=== PATIENT | male | born 1960 | race Caucasian/White ===

== ENCOUNTER 2023-05-30 15:41 | Emergency (ER) | payer MEDICARE, MEDICAID, SELFPAY ==
[2023-05-30 15:48] VITALS: BP 136/84; PULSE 80; RESP 16; TEMP 36.6; O2SAT 96; BMI 24.4
--- OUTSIDE RECORDS SUMMARY | 2023-05-30 16:08 | XMS_ITS | Continuity of Care Document ---
Author Name Unknown Organization [facility] Address [address] [place] [address]- Care Team Providers Care Career Placement Specialist Name Role Phone Not on Staff, PCP Primary Care Physician Unavail able Encounter [facility] [place] Date(s): 12/23/19 - 03/04/[address] [address]- [facility] Attending Physician: Terese Young MD, I Admitting Physician: Terese Young MD, I Referring Physician: Terese Young MD, I Allergies, Adverse Reactions, Alerts Substance Reaction Severity Status lisinopril cough Active Immunizations Given and Recorded Vaccine Date Status Refusal Reason influenza virus vaccine, inactivated 12/23/19 Give n influenza virus vaccine, inactivated 08/29/18 Give n tetanus/diphtheria/pertussis, acel(Tdap) 08/29/18 Given Medications famotidine 20 mg oral tablet 20 mg, 1, tablet, By Mouth, 2 times a day, PRN, # 60 tablet, Refills 1, Tot. Refills 1, Maintenance, if needed for heartburn symptoms, 12/23/19 14:31:00 EST, Route to Pharmacy Electronically, [facility] - [address], 186, cm, 12/23/19 10:59:00 EST, H... Start Date: 12/23/19 Status: Ordered hydrochlorothiazide-valsartan 12.5 mg-80 mg oral tablet 1 tablet, By Mouth, Daily, # 30 tablet, 11 Refills, Maintenance, 12/23/19 11:32:00 EST, Tablet, [facility] - [address], 1 tablet By Mouth Daily,x30 days, 186, cm, 12/23/19 10:59:00 EST, Height Start Date: 12/23/19 Stop Date: 12/17/20 Status: Ordered Problem List Condition Effective Dates Status Health Status Inform ant Claustrophobia(Confirmed) Active Depression(Confirmed) Active Mild heartburn(Confirmed) Active Hypertension(Confirmed) Active Social History Social History Type Response Smoking Status 5-9 cigarettes (betw een 1/4 to 1/2 pack)/day in last 30 days entered on: 10/07/18 Sex
--- OUTSIDE RECORDS SUMMARY | 2023-05-30 16:08 | XMS_ITS | Continuity of Care Document ---
Author Name Unknown Organization [facility] Address [address] [place] [address]- Care Team Providers Care Nut Picker Name Role Phone Not on Staff, PCP Primary Care Physician Unavail able Encounter [facility] [place] ACCT R [id number] Date(s): 12/23/19 - 01/02/[address] [address]- [facility] Attending Physician: Devin Beltran Admitting Physician: AdmtrDevin Referring Physician: Admtr, ArRosy Allergies, Adverse Reactions, Alerts Substance Reaction Severity [...]
--- OUTSIDE RECORDS SUMMARY | 2023-05-30 16:08 | XMS_ITS | Continuity of Care Document ---
Author Name Unknown Organization [facility] Address [address] [place] [address]- Care Team Providers Care Inspection And Testing Supervisor Name Role Phone Not on Staff, PCP Primary Care Physician Unavail able Encounter [facility] [place] ACCT R [id number] Date(s): 02/03/20 - 02/13/[address] [address]- [facility] Attending Physician: Devin Beltran Admitting Physician: AdmtrDevin [...]
--- NOTE | 2023-05-30 17:28 | PC.NURSE ---
pt not found at bedside
== END 2023-05-30 17:29 | disposition left against medical advice (07) ==
PROVIDERS: Emergency Provider Emergency Medicine
DX: R51.9 Headache, unspecified (principal)
CPT/HCPCS: 99281